=== PATIENT | male | born 1985 | race Caucasian/White ===

== ENCOUNTER 2016-08-15 03:22 | Emergency (ER) | payer OTHER ==
[~2016-08-15] VITALS: Ht 175.3 cm; Wt 101.9 kg
[2016-08-15 03:23] VITALS: TEMP 36.9; Ht 175.3 cm; Wt 101.9 kg
[2016-08-15] MEDS ORDERED: DEXAMETHASONE SOD INJ 10 MG/ML VIAL PO ONE (03:30)
[2016-08-15] MEDS ORDERED: AMOXICIL/CLAVU 875MG HOME PACK PO ONE (03:30)
[2016-08-15] MEDS ORDERED: MULT-506 PO (03:36)
[2016-08-15 03:48] VITALS: BP 124/82; PULSE 100; O2SAT 97
--- NOTE | 2016-08-15 03:50 | EMERGENCY ROOM VISIT NOTE ---
History First contact with patient: :30 Chief Complaint: SORETHROAT Stated Complaint: SWOLLEN TONSILS,SORE THROAT History of Present Illness The patient is a 30 year old male who presents to the Emergency Room with complaints of sore throat for the past few days. Patient states he feels as if his throat is swollen. He had a strep test by health services. Patient denies chest pain, dyspnea, neck stiffness, dysphagia, facial swelling, tongue swelling , fever, chills, headache, earache, vomiting, diarrhea. No new foods soaps or detergents. Patient states he can take amoxicillin and penicillin. He states he is not allergic. He states he received penicillin a few years ago for an STD and had no difficulties. Review of Systems See HPI for pertinent positives & negatives. A total of 10 systems reviewed and were otherwise negative. Past Medical/Surgical History Asthma Social History Smoking Status: Never Smoker Smokeless Tobacco Use: No Drug Use: none Occupation Status: [employer] student Current/Historical Medications Scheduled Multivitamin (Multivitamin), 1 TAB PO DAILY Allergies Coded Allergies: Penicillins (Unverified Allergy, Unknown, unknown, 08/15/16) Physical Exam Vital Signs Date Time Temp Pulse Resp B/P Pulse Ox O2 Delivery O2 Flow Rate FiO2 08/15/16 03:23 36.9 106 18 124/78 97 Room Air 08/15/16 03:23 97 Room Air Physical Exam VITALS: Vitals are noted on the nurse's note and reviewed by myself. Vital signs stable. GENERAL: Pleasant male speaking in full sentences, in no acute distress, nondiaphoretic, well-developed well-nourished. SKIN: The skin was without rashes, erythema, edema, or bruising. There is no tenting of the skin. Capillary reflex less than 2 seconds. HEAD: Normocephalic atraumatic. EARS: External auditory canals clear, tympanic membranes pearly andrew without erythema or effusion bilaterally. EYES: Pupils equal round and reactive to light and accommodation. Conjunctivae without injection, sclerae without icterus. Extraocular movements intact. NOSE: Patent, turbinates without inflammation or discharge. No sinus tenderness. MOUTH: Mucous membranes moist. Tonsils are not enlarged. Pharynx without erythema or exudate. Uvula midline, erythematous and edematous concerning for uvulitis. Airway patent. Tongue does not deviate. NECK: Supple without nuchal rigidity. No lymphadenopathy. No thyromegaly. Cervical spine is nontender. No JVD. No meningeal signs HEART: Regular rate and rhythm without murmurs gallops or rubs. LUNGS: Clear to auscultation bilaterally without wheezes, rales or rhonchi. No dullness to percussion. No retractions or accessory muscle use. ABDOMEN: Positive bowel sounds x 4. Normal tympanic percussion. Soft, nontender, without masses or organomegaly. Cameron sign negative. No guarding or rebound tenderness. MUSCULOSKELETAL: No muscle atrophy, erythema, or edema noted. NEURO: Patient was alert and oriented to person place and time. Normal sensation to light and sharp touch. No focal neurological deficits. Medical Decision & Procedures ED Course Prior records/ancillary studies reviewed. Triage Nursing notes reviewed. The patient's history was concerning for a sore throat. Differential diagnosis: Etiologies such as uvulitis, viral syndrome, tonsillitis, streptococcal pharyngitis, mononucleosis, peritonsillar abscess, retropharyngeal abscess, otitis, pneumonia, influenza, as well as others were entertained. ER treatment provided: Prednisone, Augmentin On reassessment the patient felt better. Diagnostics interpreted by me: Deferred This appears to be consistent with evil at a. Patient is well-appearing. No signs of airway compromise. He was talking in full sentences. He is afebrile and nontoxic. No signs of abscess. No signs of Glenn angina. He states he is not allergic to penicillin and can take this without difficulties. He was advised to take medications as directed and to follow-up health services in a few days or here in the ER sooner for high fevers, difficulty swallowing, neck stiffness, worsening signs or symptoms or as needed. By the evaluation outlined above emergent etiologies such as peritonsillar abscess, retropharyngeal abscess, otitis, pneumonia, meningitis, urinary tract infection , sepsis, bacteremia, as well as others were deemed relatively unlikely. He was advised if he developed allergic reaction to stop the medications immediately and come here. The pt informed about the findings as listed above. All questions were answered and pleased with the treatment. Return instructions were outlined and the patient was discharged in stable condition. Outpatient prescription management: Augmentin, prednisone Referral: The patient was referred back to their primary care physician for follow-up in 2 to 3 days for a recheck of the current condition. Medical Decision As above Impression Primary Impression: Uvulitis Departure Information Dispostion Home / Self-Care Condition GOOD Referrals [facility] (PCP) Patient Instructions A Signature Page, My [facility] [employer] Additional Instructions Prednisone 50mg: Once daily until the prescription is finished. It is best to take this earlier in the day as some patients note occasional difficulty falling asleep when taken in the late evening. Augmentin 875mg: Take one tablet twice a day for total of 10 days. All antibiotics can cause diarrhea. If this occurs and you feel worse or it does not resolve in 1-2 days follow up with your doctor or return to the Emergency Department as this could be signs of serious underlying problems. Any medication can cause an allergic reaction, stop the pills immediately and return to the ER for rash, hives, breathing difficulties, or swelling. Acetaminophen(Tylenol) may be used for fever or pain. Use 1000mg every six hours as needed. Avoid using more than 3000mg in a 24 hour period. AND/OR Ibuprofen(Motrin, Advil) may be used for fever or pain. Use 600mg every six hours as needed. Take with food. Avoid using more than 2400mg in a 24 hour period. Do not use 2400mg per day for more than three consecutive days without physician direction. Prolonged inappropriate use can lead to stomach upset or ulcers. Controlling your fever with Tylenol and Ibuprofen as above will make you feel better. Rest and drink plenty of fluids. Avoid strenuous activity until your symptoms resolve and your breathing returns to normal. Continue current medications. Return to the ER for chest pain, difficulty breathing, persistent fevers, vomiting, worsening of your condition, or as needed. Follow-up with family care in 2-3 days.
[2016-08-15] MEDS ORDERED: PRED50TA PO (03:52)
[2016-08-15] MEDS ORDERED: AMOX875T PO (03:52)
== END 2016-08-15 03:56 | disposition home or self-care (01) ==
LOC: C.EDB 03:23
DX: K12.2 Cellulitis and abscess of mouth (principal); J45.909 Unspecified asthma, uncomplicated

== ENCOUNTER 2017-01-24 10:44 | Emergency (ER) | payer OTHER ==
[~2017-01-24] VITALS: Ht 172.7 cm; Wt 102.6 kg
[~2017-01-24 10:44] MED LIST: MULT-506 PO
[2017-01-24 10:53] VITALS: Ht 172.7 cm; Wt 102.6 kg
[2017-01-24] MEDS ORDERED: CETI10TA84 PO (11:02)
[2017-01-24] MEDS ORDERED: TRVHP PO (11:02)
--- NOTE | 2017-01-24 12:00 | DIAGNOSTIC IMAGING REPORT ---
HEAD CT NONCONTRAST CT DOSE: 687.98 mGy.cm HISTORY: Mental status change left facial droop, r/o stroke TECHNIQUE: Multiaxial CT images of the head were performed without the use of intravenous contrast. Comparison: None. Findings: The paranasal sinuses and mastoid air cells are clear. The calvarium and skull base are intact. The ventricles and sulci are within normal limits. There is no mass, hematoma, midline shift, or acute infarct. Impression: No acute intracranial abnormality. Electronically signed by: Codey Galvez M.D. 01/24/2017 11:58 AM Dictated Date/Time: 01/24/2017 11:57 AM
--- NOTE | 2017-01-24 12:15 | EMERGENCY ROOM VISIT NOTE ---
ED Visit Note First contact with patient: 11:09 CHIEF COMPLAINT: Left facial numbness and weakness for 3 days HISTORY OF PRESENT ILLNESS: This patient has had weakness and numbness of the left side of the face and a numb feeling in the tongue that started two days ago. He is unable to close the eye tightly as the normal side. Denies headache , neck pain, nausea or vomiting, or weakness or numbness of the extremities. There was no head injury. The patient is not diabetic. He does note that he is taking Truvada antiviral as a pre-exposure prophylaxis. REVIEW OF SYSTEMS: Head: No headache, injury or neck pain. Throat: No sore throat, dysphagia, or hoarseness. Neck: No pain, stiffness, or swelling. Cardiac: No chest pain, diaphoresis, dyspnea on exertion, orthopnea, pedal edema, or palpitations. Respiratory: No cough, change in sputum, wheezes, hemoptysis, shortness of breath, or stridor. Gastrointestinal: No abdominal pain, blood in stools, diarrhea, loss of appetite, nausea, or vomiting. Musculoskeletal: No new joint pain or swelling, stiffness, or limited range of motion. PMH: The patient is healthy; there is no significant medical or surgical history. SOCIAL HISTORY: Patient lives at home. PHYSICAL EXAM: Vital Signs: Reviewed Nurse's notes. There is a weakness of the left side of the face which is accentuated when smiling or trying to grimace. The eye does close but not as fully as the right eye and it is asymmetrical. The forehead muscles are clearly weaker on that side when the patient tries to furrow the brow. Toe Stapler strength and arm flexion of the upper and lower extremities is normal. The patient is alert, oriented, and coherent. PERRL. EOMI. Negative pronator drift, negative Romberg, normal [id number]. Normal gait. EMERGENCY DEPARTMENT COURSE: CT scan of the head is normal. UA and POC glucose were ordered to assess for underlying diabetes, glucose is within normal limits , and patient did not prefer to provide urine sample. Blood testing for Lyme was offered to the patient, he prefers to have this done through his PCP. Patient was updated on all results and plan for discharge home. He was prescribed prednisone taper and valacyclovir, first doses given in the ED prior to discharge. Discussed with ED Pharmacist, valacyclovir is not contraindicated in the setting of Truvada use. Patient was discharged home in stable condition ambulatory. Current/Historical Medications Scheduled Cetirizine (Zyrtec), 10 MG PO DAILY Emtricitabine/Temofovir (Truvada 200/300MG), 1 TAB PO DAILY Prednisone Tab (Prednisone), 10 MG PO DAILY Valacyclovir Hcl (Valtrex), 1,000 MG PO TID Allergies Coded Allergies: Penicillins (Unverified Allergy, Unknown, unknown, 08/15/16) Vital Signs Date Time Temp Pulse Resp B/P (MAP) Pulse Ox O2 Delivery O2 Flow Rate FiO2 01/24/17 14:13 36.8 85 18 125/79 96 01/24/17 14:13 85 18 96 Room Air 01/24/17 10:53 36.8 96 18 125/79 96 Room Air Laboratory Results Test 01/24/17 12:00 Bedside Glucose 94 mg/dl (70-99) Medications Administered Medications (Trade) Dose Ordered Sig/Saleem Route Start Time Stop Time Status Last Admin Dose Admin Valacyclovir HCl (Valtrex Tab) 1,000 mg NOW ONCE PO 01/24/17 13:45 01/24/17 13:46 DC 01/24/17 14:12 1,000 MG Prednisone (PredniSONE TAB) 60 mg NOW STAT PO 01/24/17 13:46 01/24/17 13:47 DC 01/24/17 14:12 60 MG Departure Information Impression Primary Impression: Left-sided Jesus's palsy Dispostion Home / Self-Care Condition GOOD Prescriptions Valacyclovir Hcl (VALTREX) 1 Gm Tab 1000 MG PO TID for 7 Days, #21 TAB Prov: Dulce Mandel CRNP 01/24/17 Prednisone Tab (PREDNISONE) 10 Mg Tab 10 MG PO DAILY for 10 Days, #30 TAB Taper: 50 mg for 2 days, then 40 mg for 2 days, then 30 mg for 2 days, then 20 mg for 2 days, then 10 mg for 2 days. Prov: Dulce Mandel CRNP 01/24/17 Referrals [facility] (PCP) Patient Instructions My [facility] Additional Instructions Take the Prednisone taper as prescribed over the next 10 days. Valacyclovir to help treat for potential Herpes Simplex Virus type 1, which is a common cause of Jesus's palsy. Keep the left eyelid taped shut with paper tape at night to prevent drying of the eye. Use artificial tears in the daytime to keep the eyeball from drying out. Follow up with your PCP in the next few days, and discuss referral to a neurologist in the next week. You should also discuss testing for Lyme disease with your PCP. Please return to the ER for any worsening symptoms, including sudden severe headache, vision changes or loss of vision, persistent nausea or vomiting, fever /chills/feeling ill, or any other concerns.
[2017-01-24] MEDS ORDERED: PRED10TA PO (12:21)
[2017-01-24] MEDS ORDERED: VALA1TAB2 PO (12:21)
[2017-01-24 14:13] VITALS: BP 125/79; PULSE 85; TEMP 36.8; O2SAT 96
== END 2017-01-24 14:15 | disposition home or self-care (01) ==
LOC: C.EDB 10:45 → C.EDD 14:15
DX: G51.0 Bell's palsy (principal); Z79.899 Other long term (current) drug therapy